=== PATIENT | female | born 1995 | race Caucasian/White ===

== ENCOUNTER 2016-08-30 19:54 | Emergency (ER) | payer BC ==
[2016-08-30] MEDS ORDERED: SODIUM CHLORIDE 0.9% 500 ML IV STA (20:27)
[2016-08-30] MEDS ORDERED: ACTIVATED CHARCOAL 50 GM/240 ML BOTTLE PO STA (20:27)
--- NOTE | 2016-08-30 20:31 | ED ---
General Adult HPI - General Chief complaint: Overdose Stated complaint: Overdose Time Seen by Provider: 08/30/16 20:00 Source: patient, family, RN notes reviewed Mode of arrival: ambulatory Limitations: no limitations - History of Present Illness Initial comments: This is a 21-year-old female presents emergency Department with her mother patient states she was having a very stressful day so she went ahead and took 20 Klonopin someone else's. She doesn't know the exact strength of the Klonopin. Patient states she was just stressed and did not vomit takes is 20. Patient states she has a history of depression. Does not take her medicines for it. Patient states she was not suicidal and is not suicidal. Patient she just didn't want to tell anybody about it so she tried to deal with her stress herself. Patient denies any sexual activity lately. Patient states she didn't do any other drugs she denies any alcohol patient denies any physical complaints today. Patient denies headache patient denies numbness weakness. Patient denies chest pain difficult breathing or shortness breath per patient denies any recent fever chills or cough. Patient denies abdominal pain patient denies nausea vomiting or diarrhea. Patient states she cannot be because she is basically celibate - Related Data Home Medications Medication Instructions Recorded Confirmed No Known Home Medications [No 08/30/16 08/30/16 Known Home Medications] Allergies Allergy/AdvReac Type Severity Reaction Status Date / Time No Known Allergies Allergy Verified 08/30/16 19:59 Review of Systems ROS Statement: Those systems with pertinent positive or pertinent negative responses have been documented in the HPI. ROS Other: All systems not noted in ROS Statement are negative. Past Medical History Past Medical History: No Reported History History of Any Multi-Drug Resistant Organisms: None Reported Past Surgical History: Ear Surgery Past Psychological History: No Psychological Hx Reported Smoking Status: Current every day smoker Past Alcohol Use History: Rare Past Drug Use History: None Reported General Exam - General Exam Comments Initial Comments: GENERAL: Patient is well-developed and well-nourished. Patient is nontoxic and well- hydrated and is in no acute distress. ENT: Neck is soft and supple. No significant lymphadenopathy is noted. Oropharynx is clear. Moist mucous membranes. Neck has full range of motion without eliciting any pain. EYES: The sclera were anicteric and conjunctiva were pink and moist. Extraocular movements were intact and pupils were equal round and reactive to light. Eyelids were unremarkable. PULMONARY: Unlabored respirations. Good breath sounds bilaterally. No audible rales rhonchi or wheezing was noted. CARDIOVASCULAR: Patient is tachycardic. ABDOMEN: Soft and nontender with normal bowel sounds. No palpable organomegaly was noted. There is no palpable pulsatile mass. SKIN: Skin is clear with no lesions or rashes and otherwise unremarkable. NEUROLOGIC: Patient is alert and oriented x3. Cranial nerves II through XII are grossly intact. Motor and sensory are also intact. Normal speech, volume and content. Symmetrical smile. C MUSCULOSKELETAL: Normal extremities with adequate strength and full range of motion. No lower extremity swelling or edema. No calf tenderness. LYMPHATICS: No significant lymphadenopathy is noted PSYCHIATRIC: Patient has a very flat affect and does appear depressed Limitations: no limitations Course Vital Signs 08/30/16 08/30/16 08/30/16 19:57 21:00 23:25 Temperature 98.9 F Pulse Rate 120 H 118 H 102 H Respiratory 20 16 16 Rate Blood Pressure 141/86 158/73 115/61 O2 Sat by Pulse 97 98 98 Oximetry Medical Decision Making - Medical Decision Making EKG shows sinus tachycardia at 116 bpm NM interval is 142 QRS is 98 QT interval 352 QTC is 461 I spoke to the patient on a number of occasions and every time she had no complaints and wanted to go home and she continued to seize he is not suicidal. EPS evaluated the patient spoke with the psychiatrist and the psychiatrist wanted the patient admitted because of her impulsive behavior. The psychiatric nurses filled out a petition and I filled out a clinical certificate. - Lab Data Result diagrams: 08/30/16 20:17 08/30/16 20:17 Lab Results 08/30/16 08/30/16 08/30/16 Range/Units 20:13 20:13 20:17 WBC (4.0-11.0) k/uL RBC (3.80-5.40) m/uL Hgb (11.4-16.0) gm/dL Hct (34.0-46.0) % MCV (80.0-100.0) fL MCH (25.0-35.0) pg MCHC (31.0-37.0) g/dL RDW (11.5-15.5) % Plt Count (150-450) k/uL Neutrophils % % Lymphocytes % % Monocytes % % Eosinophils % % Basophils % % Neutrophils # (1.3-7.7) k/uL Lymphocytes # (1.0-4.8) k/uL Monocytes # (0-1.0) k/uL Eosinophils # (0-0.7) k/uL Basophils # (0-0.2) k/uL Sodium 145 (137-145) mmol/L Potassium 4.4 (3.5-5.1) mmol/L Chloride 103 (98-107) mmol/L Carbon Dioxide 28 (22-30) mmol/L Anion Gap 14 mmol/L BUN 13 (7-17) mg/dL Creatinine 0.80 (0.52-1.04) mg/dL Est GFR (MDRD) Af Amer >60 (>60 ml/min/1.73 sqM) Est GFR (MDRD) Non-Af >60 (>60 ml/min/1.73 sqM) Glucose 79 (74-99) mg/dL Calcium 9.8 (8.4-10.2) mg/dL Total Bilirubin 0.5 (0.2-1.3) mg/dL AST 27 (14-36) U/L ALT 27 (9-52) U/L Alkaline Phosphatase 71 (38-126) U/L Total Protein 7.3 (6.3-8.2) g/dL Albumin 4.7 (3.5-5.0) g/dL Urine HCG, Qual Not Detected (Not Detectd) Salicylates <1.0 mg/dL Urine Opiates Screen Not Detected (NotDetected) Ur Oxycodone Screen Not Detected (NotDetected) Urine Methadone Screen Not Detected (NotDetected) Ur Propoxyphene Screen Not Detected (NotDetected) Acetaminophen <10.0 ug/mL Ur Barbiturates Screen Not Detected (NotDetected) U Tricyclic Antidepress Not Detected (NotDetected) Ur Phencyclidine Scrn Not Detected (NotDetected) Ur Amphetamines Screen Not Detected (NotDetected) U Methamphetamines Scrn Not Detected (NotDetected) U Benzodiazepines Scrn Not Detected (NotDetected) Urine Cocaine Screen Not Detected (NotDetected) U Marijuana (THC) Screen Not Detected (NotDetected) Serum Alcohol <10 mg/dL 03/26/17 Range/Units 20:17 WBC 9.8 (4.0-11.0) k/uL RBC 4.59 (3.80-5.40) m/uL Hgb 14.0 (11.4-16.0) gm/dL Hct 41.7 (34.0-46.0) % MCV 90.9 (80.0-100.0) fL MCH 30.4 (25.0-35.0) pg MCHC 33.5 (31.0-37.0) g/dL RDW 12.3 (11.5-15.5) % Plt Count 245 (150-450) k/uL Neutrophils % 71 % Lymphocytes % 21 % Monocytes % 6 % Eosinophils % 1 % Basophils % 0 % Neutrophils # 7.0 (1.3-7.7) k/uL Lymphocytes # 2.1 (1.0-4.8) k/uL Monocytes # 0.5 (0-1.0) k/uL Eosinophils # 0.0 (0-0.7) k/uL Basophils # 0.0 (0-0.2) k/uL Sodium (137-145) mmol/L Potassium (3.5-5.1) mmol/L Chloride (98-107) mmol/L Carbon Dioxide (22-30) mmol/L Anion Gap mmol/L BUN (7-17) mg/dL Creatinine (0.52-1.04) mg/dL Est GFR (MDRD) Af Amer (>60 ml/min/1.73 sqM) Est GFR (MDRD) Non-Af (>60 ml/min/1.73 sqM) Glucose (74-99) mg/dL Calcium (8.4-10.2) mg/dL Total Bilirubin (0.2-1.3) mg/dL AST (14-36) U/L ALT (9-52) U/L Alkaline Phosphatase (38-126) U/L Total Protein (6.3-8.2) g/dL Albumin (3.5-5.0) g/dL Urine HCG, Qual (Not Detectd) Salicylates mg/dL Urine Opiates Screen (NotDetected) Ur Oxycodone Screen (NotDetected) Urine Methadone Screen (NotDetected) Ur Propoxyphene Screen (NotDetected) Acetaminophen ug/mL Ur Barbiturates Screen (NotDetected) U Tricyclic Antidepress (NotDetected) Ur Phencyclidine Scrn (NotDetected) Ur Amphetamines Screen (NotDetected) U Methamphetamines Scrn (NotDetected) U Benzodiazepines Scrn (NotDetected) Urine Cocaine Screen (NotDetected) U Marijuana (THC) Screen (NotDetected) Serum Alcohol mg/dL Disposition Clinical Impression: Drug overdose, Depression, History of impulsive behavior Disposition: ADMITTED IP TO THIS HOSP Referrals: Guillaume Ramirez DO [Primary Care Provider] - 1-2 days Time of Disposition: 00:26
[2016-08-30 20:52] LABS: Basophils % (A) 0 %; CH 30.5; CHCM 33.7; Eosinophils % (A) 1 %; HCT 41.7 % (34.0-46.0); HDW 2.39; Luc # (Auto) 0.16; Luc % (Auto) 2; Lymphocytes # (A) 2.1 k/uL (1.0-4.8); Lymphocytes % (A) 21 %; MCH 30.4 pg (25.0-35.0); MCHC 33.5 g/dL (31.0-37.0); MCV 90.9 fL (80.0-100.0); Mean Platelet Volume 7.6; Monocytes # (A) 0.5 k/uL (0-1.0); Monocytes % (A) 6 %; Neutrophils % (A) 71 %; RBC 4.59 m/uL (3.80-5.40); RDW 12.3 % (11.5-15.5); WBC 9.8 k/uL (4.0-11.0); WBC (Perox) 9.54
[2016-08-30 21:24] LABS: ALT 27 U/L (9-52); AST 27 U/L (14-36); Acetaminophen <10.0 ug/mL; Alcohol <10 mg/dL; Alkaline Phosphatase 71 U/L (38-126); Anion Gap 14 mmol/L; Blood Urea Nitrogen 13 mg/dL (7-17); Calcium 9.8 mg/dL (8.4-10.2); Carbon Dioxide 28 mmol/L (22-30); Chloride 103 mmol/L (98-107); Glucose 79 mg/dL (74-99); Non-African American GFR(MDRD) >60 (>60 ml/min/1.73 sqM); Potassium 4.4 mmol/L (3.5-5.1); Salicylate <1.0 mg/dL; Sodium 145 mmol/L (137-145); Total Bilirubin 0.5 mg/dL (0.2-1.3); Total Protein 7.3 g/dL (6.3-8.2)
[2016-08-30 23:25] VITALS: RESP 16
[2016-08-31 07:36] VITALS: BP 113/57; PULSE 84; TEMP 97.9
== END 2016-08-31 08:15 | disposition other institution (70) ==
LOC: EC 19:54
DX: T42.4X1A Poisoning by benzodiazepines, accidental (unintentional), initial encounter (principal); F32.9 Major depressive disorder, single episode, unspecified; R45.87 Impulsiveness; R00.0 Tachycardia, unspecified; F17.200 Nicotine dependence, unspecified, uncomplicated
CPT/HCPCS: 36415; 80053; 80306; 80320; 81025; 82075; 83520; 85025; 93005; 96360; 99284

== ENCOUNTER 2019-02-25 12:33 | Emergency (ER) | payer BC ==
[2019-02-25] MEDS ORDERED: ONDANSETRON 4 MG/2 ML VIAL IVP STA (12:44)
[2019-02-25] MEDS ORDERED: SODIUM CHLORIDE 0.9% 2,000 ML IV STA (12:44)
[2019-02-25] MEDS ORDERED: LORazepam 2 MG/ML INJ IV STA (12:45)
--- NOTE | 2019-02-25 12:47 | ED ---
General Adult HPI - General Chief complaint: Nausea/Vomiting/Diarrhea Stated complaint: NVD Time Seen by Provider: 02/25/19 12:38 Source: patient, RN notes reviewed, old records reviewed Mode of arrival: ambulatory Limitations: no limitations - History of Present Illness Initial comments: This Patient is a pleasant 23-year-old female who presents emergency department today with chief complaint of nausea vomiting and diarrhea for the past 2 days. Patient reports symptoms started shortly after eating sushi a local restaurant. Patient states that she blew she's suffering from food poisoning. She denies any abdominal tenderness. She states that she's had significant vomiting and unable to tolerate her normal medications. She states she takes Xanax regularly for anxiety and has not been able take this as well. Patient denies any associated fevers. She does report that of blood noted in her stool. - Related Data Previous Rx's Medication Instructions Recorded Acetaminophen Tab [Tylenol] 650 mg PO Q6HR PRN tab 06/10/17 Levofloxacin [Levaquin] 500 mg PO DAILY #10 tab 06/11/17 Naproxen [Naprosyn] 250 mg PO TID #21 tab 06/11/17 Ondansetron Odt [Zofran Odt] 4 mg PO Q8HR PRN #12 tab 02/25/19 Allergies Allergy/AdvReac Type Severity Reaction Status Date / Time No Known Allergies Allergy Verified 02/25/19 12:37 Review of Systems ROS Statement: Those systems with pertinent positive or pertinent negative responses have been documented in the HPI. ROS Other: All systems not noted in ROS Statement are negative. Past Medical History Past Medical History: No Reported History History of Any Multi-Drug Resistant Organisms: None Reported Past Surgical History: Ear Surgery Additional Past Surgical History / Comment(s): tubes in ears as child Past Anesthesia/Blood Transfusion Reactions: No Reported Reaction Past Psychological History: ADD/ADHD, Anxiety Smoking Status: Former smoker Past Alcohol Use History: None Reported Past Drug Use History: None Reported - Past Family History Mother Family Medical History: No Reported History General Exam - General Exam Comments Initial Comments: This is a 23-year-old female. Alert and oriented 3. No distress. Limitations: no limitations General appearance: alert, in no apparent distress Head exam: Present: atraumatic, normocephalic, normal inspection Eye exam: Present: normal appearance, PERRL, EOMI. Absent: scleral icterus, conjunctival injection, periorbital swelling ENT exam: Present: normal exam, mucous membranes moist Neck exam: Present: normal inspection. Absent: tenderness, meningismus, lymphadenopathy Respiratory exam: Present: normal lung sounds bilaterally. Absent: respiratory distress, wheezes, rales, rhonchi, stridor Cardiovascular Exam: Present: regular rate, normal rhythm, normal heart sounds. Absent: systolic murmur, diastolic murmur, rubs, gallop, clicks GI/Abdominal exam: Present: soft, normal bowel sounds. Absent: distended, tenderness, guarding, rebound, rigid Extremities exam: Present: normal inspection, full ROM, normal capillary refill. Absent: tenderness, pedal edema, joint swelling, calf tenderness Back exam: Present: normal inspection Neurological exam: Present: alert, oriented X3, CN II-XII intact Psychiatric exam: Present: normal affect, normal mood Skin exam: Present: warm Course Vital Signs 02/25/19 12:35 Temperature 98.4 F Pulse Rate 97 Respiratory 20 Rate Blood Pressure 118/71 O2 Sat by Pulse 100 Oximetry Medical Decision Making - Medical Decision Making 23-year-old female presents for nausea vomiting diarrhea for 2 days after eating sushi. Symptoms started 2 hours after eating this food. At this time Patient at this time is abdominal tenderness. No fever. Patient at this time has no other significant symptoms. Patient's labwork was reviewed and unremarkable. This time Patient is agreeable to be discharged home after receiving 2 L of fluids. Discussed the Patient and follow-up with her primary care doctor symptoms continue persist. Discharged Patient instructed her some Zofran. All questions answered to ribs were discussed. - Lab Data Result diagrams: 02/25/19 13:54 02/25/19 13:54 Lab Results 02/25/19 02/25/19 02/25/19 Range/Units 13:54 13:54 13:54 WBC (3.8-10.6) k/uL RBC (3.80-5.40) m/uL Hgb (11.4-16.0) gm/dL Hct (34.0-46.0) % MCV (80.0-100.0) fL MCH (25.0-35.0) pg MCHC (31.0-37.0) g/dL RDW (11.5-15.5) % Plt Count (150-450) k/uL Neutrophils % % Lymphocytes % % Monocytes % % Eosinophils % % Basophils % % Neutrophils # (1.3-7.7) k/uL Lymphocytes # (1.0-4.8) k/uL Monocytes # (0-1.0) k/uL Eosinophils # (0-0.7) k/uL Basophils # (0-0.2) k/uL Sodium 144 (137-145) mmol/L Potassium 4.0 (3.5-5.1) mmol/L Chloride 108 H (98-107) mmol/L Carbon Dioxide 21 L (22-30) mmol/L Anion Gap 15 mmol/L BUN 7 (7-17) mg/dL Creatinine 0.62 (0.52-1.04) mg/dL Est GFR (CKD-EPI)AfAm >90 (>60 ml/min/1.73 sqM) Est GFR (CKD-EPI)NonAf >90 (>60 ml/min/1.73 sqM) Glucose 106 H (74-99) mg/dL Calcium 10.2 (8.4-10.2) mg/dL Total Bilirubin 0.6 (0.2-1.3) mg/dL AST 28 (14-36) U/L ALT 32 (9-52) U/L Alkaline Phosphatase 82 (38-126) U/L Total Protein 8.1 (6.3-8.2) g/dL Albumin 5.1 H (3.5-5.0) g/dL Amylase 49 (30-110) U/L Lipase 38 (23-300) U/L Urine Color Yellow Urine Appearance Clear (Clear) Urine pH 5.5 (5.0-8.0) Ur Specific Mcdonald 1.026 (1.001-1.035) Urine Protein Negative (Negative) Urine Glucose (UA) Negative (Negative) Urine Ketones Negative (Negative) Urine Blood Negative (Negative) Urine Nitrite Negative (Negative) Urine Bilirubin Negative (Negative) Urine Urobilinogen <2.0 (<2.0) mg/dL Ur Leukocyte Esterase Negative (Negative) Urine HCG, Qual Not Detected (Not Detectd) 02/25/19 Range/Units 13:54 WBC 9.1 (3.8-10.6) k/uL RBC 4.78 (3.80-5.40) m/uL Hgb 13.6 (11.4-16.0) gm/dL Hct 42.1 (34.0-46.0) % MCV 88.0 (80.0-100.0) fL MCH 28.5 (25.0-35.0) pg MCHC 32.3 (31.0-37.0) g/dL RDW 12.7 (11.5-15.5) % Plt Count 276 (150-450) k/uL Neutrophils % 77 % Lymphocytes % 18 % Monocytes % 4 % Eosinophils % 1 % Basophils % 0 % Neutrophils # 7.0 (1.3-7.7) k/uL Lymphocytes # 1.6 (1.0-4.8) k/uL Monocytes # 0.3 (0-1.0) k/uL Eosinophils # 0.1 (0-0.7) k/uL Basophils # 0.0 (0-0.2) k/uL Sodium (137-145) mmol/L Potassium (3.5-5.1) mmol/L Chloride (98-107) mmol/L Carbon Dioxide (22-30) mmol/L Anion Gap mmol/L BUN (7-17) mg/dL Creatinine (0.52-1.04) mg/dL Est GFR (CKD-EPI)AfAm (>60 ml/min/1.73 sqM) Est GFR (CKD-EPI)NonAf (>60 ml/min/1.73 sqM) Glucose (74-99) mg/dL Calcium (8.4-10.2) mg/dL Total Bilirubin (0.2-1.3) mg/dL AST (14-36) U/L ALT (9-52) U/L Alkaline Phosphatase (38-126) U/L Total Protein (6.3-8.2) g/dL Albumin (3.5-5.0) g/dL Amylase (30-110) U/L Lipase (23-300) U/L Urine Color Urine Appearance (Clear) Urine pH (5.0-8.0) Ur Specific Mcdonald (1.001-1.035) Urine Protein (Negative) Urine Glucose (UA) (Negative) Urine Ketones (Negative) Urine Blood (Negative) Urine Nitrite (Negative) Urine Bilirubin (Negative) Urine Urobilinogen (<2.0) mg/dL Ur Leukocyte Esterase (Negative) Urine HCG, Qual (Not Detectd) Disposition Clinical Impression: Nausea & vomiting, Diarrhea Disposition: HOME SELF-CARE Condition: Good Instructions (If sedation given, give patient instructions): Acute Nausea and Vomiting (ED) Additional Instructions: Please use medication as discussed. Please follow up with family doctor if symptoms have not improved over the next two days. Please return to the emergency room if your symptoms increase or worsen or for any other concerns. Prescriptions: Ondansetron Odt [Zofran Odt] 4 mg PO Q8HR PRN #12 tab PRN Reason: Nausea Is patient prescribed a controlled substance at d/c from ED?: No Referrals: Guillaume Ramirez DO [Primary Care Provider] - 1-2 days Time of Disposition: 14:28
[2019-02-25 14:04] LABS: Appearance,Urine Clear (Clear); Basophils % (A) 0 %; Bilirubin,Urine Negative (Negative); Blood,Urine Negative (Negative); Color,Urine Yellow; Eosinophils # (A) 0.1 k/uL (0-0.7); Eosinophils % (A) 1 %; Glucose,Urine (UA) Negative (Negative); HCT 42.1 % (34.0-46.0); HGB 13.6 gm/dL (11.4-16.0); Ketones,Urine Negative (Negative); Leukocyte Esterase,Urine Negative (Negative); Lymphocytes # (A) 1.6 k/uL (1.0-4.8); Lymphocytes % (A) 18 %; MCH 28.5 pg (25.0-35.0); MCHC 32.3 g/dL (31.0-37.0); Mean Platelet Volume 7.5; Monocytes # (A) 0.3 k/uL (0-1.0); Monocytes % (A) 4 %; Neutrophils % (A) 77 %; Nitrite,Urine Negative (Negative); PH, Urine 5.5 (5.0-8.0); Platelet Count 276 k/uL (150-450); Protein,Urine Negative (Negative); RBC 4.78 m/uL (3.80-5.40); RDW 12.7 % (11.5-15.5); Specific Gravity,Urine 1.026 (1.001-1.035); Urobilinogen,Urine <2.0 mg/dL (<2.0); WBC 9.1 k/uL (3.8-10.6)
[2019-02-25 14:13] LABS: ALT 32 U/L (9-52); AST 28 U/L (14-36); African American GFR (CKD) >90 (>60 ml/min/1.73 sqM); Albumin 5.1 g/dL (3.5-5.0); Alkaline Phosphatase 82 U/L (38-126); Amylase 49 U/L (30-110); Anion Gap 15 mmol/L; Blood Urea Nitrogen 7 mg/dL (7-17); Calcium 10.2 mg/dL (8.4-10.2); Carbon Dioxide 21 mmol/L (22-30); Chloride 108 mmol/L (98-107); Glucose 106 mg/dL (74-99); Sodium 144 mmol/L (137-145); Total Bilirubin 0.6 mg/dL (0.2-1.3); Total Protein 8.1 g/dL (6.3-8.2)
[2019-02-25 16:03] VITALS: RESP 18; TEMP 98
[2019-02-25 16:04] VITALS: BP 115/87; PULSE 78
== END 2019-02-25 15:30 | disposition home or self-care (01) ==
LOC: EC 12:33
DX: R11.2 Nausea with vomiting, unspecified (principal); R19.7 Diarrhea, unspecified; F41.9 Anxiety disorder, unspecified; Z87.891 Personal history of nicotine dependence; Z79.899 Other long term (current) drug therapy
CPT/HCPCS: 36415; 80053; 82150; 83690; 85025; 81003; 81025; 99284; 96374; 96375; 96361 ×2; J2060; J2405

== ENCOUNTER 2019-06-26 14:02 | Emergency (ER) | payer BC ==
[2019-06-26 14:34] VITALS: TEMP 98.8
[2019-06-26] MEDS: SODIUM CHLORIDE 0.9% 500 ML 500 ML IV ONE ×2 (15:48→16:55)
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
[2019-06-26] MEDS: LORazepam 1 MG TAB PO STA ×2 (17:09→17:26)
[2019-06-26] MEDS: ACETAMINOPHEN TAB 325 MG TAB PO STA ×2 (17:09→17:35)
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
[2019-06-26 17:48] VITALS: BP 151/94; PULSE 104; RESP 18
== END 2019-06-26 17:46 | disposition home or self-care (01) ==
LOC: EC 14:02
DX: S80.212A Abrasion, left knee, initial encounter (principal); S00.511A Abrasion of lip, initial encounter; M54.2 Cervicalgia; Z87.891 Personal history of nicotine dependence; Y04.0XXA Assault by unarmed brawl or fight, initial encounter; Y92.009 Unspecified place in unspecified non-institutional (private) residence as the place of occurrence of the external cause
CPT/HCPCS: 72125; 70450; 70498; 99284; 96360; Q9967

== ENCOUNTER 2019-09-29 20:56 | Inpatient (IN) | payer BC ==
[2019-09-29] MEDS ORDERED: SODIUM CHLORIDE 0.9% 1,000 ML IV STA (21:45)
[2019-09-29 22:10] LABS: Basophils % (A) 0 %; Eosinophils # (A) 0.1 k/uL (0-0.7); Eosinophils % (A) 1 %; HCT 40.2 % (34.0-46.0); HGB 12.7 gm/dL (11.4-16.0); Lymphocytes # (A) 1.8 k/uL (1.0-4.8); Lymphocytes % (A) 24 %; MCH 29.9 pg (25.0-35.0); MCHC 31.7 g/dL (31.0-37.0); MCV 94.3 fL (80.0-100.0); Mean Platelet Volume 7.5; Monocytes # (A) 0.3 k/uL (0-1.0); Monocytes % (A) 4 %; Neutrophils # (A) 5.3 k/uL (1.3-7.7); Neutrophils % (A) 69 %; Platelet Count 235 k/uL (150-450); RBC 4.26 m/uL (3.80-5.40); RDW 12.7 % (11.5-15.5); WBC 7.6 k/uL (3.8-10.6)
--- NOTE | 2019-09-29 22:10 | ED ---
General Adult HPI - General Source: patient, family, RN notes reviewed Mode of arrival: ambulatory Limitations: no limitations <Malik Abraham - Last Filed: 09/30/19 01:14> <Ravi Ramirez - Last Filed: 09/30/19 06:51> - General Chief complaint: Overdose Stated complaint: Overdose Time Seen by Provider: 09/29/19 21:17 - History of Present Illness Initial comments: 24-year-old female presents to the emergency department for a chief complaint of overdose. Patient states that at an unknown time prior to arrival she took 8-15 0.25 mg Xanax. However sister is concerned she may have taken something else as well. Patient denies that she did this because she was suicidal. She states she did it because she is overwhelmed with her life. States that she recently had a friend , has to testify in court for a matter involving a significant other, and also got kicked out of her house. She does admit to drinking one glass of wine. She states that she does see a counselor for these types of things.Patient has no other complaints at this time including shortness of breath, chest pain, abdominal pain, nausea or vomiting, headache, or visual changes. (Malik Abraham) - Related Data Previous Rx's Medication Instructions Recorded Acetaminophen Tab [Tylenol] 650 mg PO Q6HR PRN tab 06/10/17 Levofloxacin [Levaquin] 500 mg PO DAILY #10 tab 06/11/17 Naproxen [Naprosyn] 250 mg PO TID #21 tab 06/11/17 Ondansetron Odt [Zofran Odt] 4 mg PO Q8HR PRN #12 tab 02/25/19 Allergies Allergy/AdvReac Type Severity Reaction Status Date / Time No Known Allergies Allergy Verified 09/29/19 21:05 Review of Systems ROS Other: All systems not noted in ROS Statement are negative. <Malik Abraham - Last Filed: 09/30/19 01:14> ROS Other: All systems not noted in ROS Statement are negative. <Ravi Ramirez - Last Filed: 09/30/19 06:51> ROS Statement: Those systems with pertinent positive or pertinent negative responses have been documented in the HPI. Past Medical History Past Medical History: No Reported History History of Any Multi-Drug Resistant Organisms: None Reported Past Surgical History: Ear Surgery Additional Past Surgical History / Comment(s): tubes in ears as child, rhinoplasty Past Anesthesia/Blood Transfusion Reactions: No Reported Reaction Past Psychological History: ADD/ADHD, Anxiety Smoking Status: Former smoker Past Alcohol Use History: Occasional Past Drug Use History: None Reported - Past Family History Mother Family Medical History: No Reported History <Malik Abraham P - Last Filed: 09/30/19 01:14> General Exam Limitations: no limitations General appearance: alert, in no apparent distress Head exam: Present: atraumatic, normocephalic, normal inspection Eye exam: Present: normal appearance, PERRL, EOMI. Absent: scleral icterus, conjunctival injection, periorbital swelling ENT exam: Present: normal exam, mucous membranes moist Neck exam: Present: normal inspection, full ROM. Absent: tenderness, meningismus, lymphadenopathy Respiratory exam: Present: normal lung sounds bilaterally. Absent: respiratory distress, wheezes, rales, rhonchi, stridor Cardiovascular Exam: Present: tachycardia, normal heart sounds. Absent: systolic murmur, diastolic murmur, rubs, gallop, clicks GI/Abdominal exam: Present: soft, normal bowel sounds. Absent: distended, tenderness, guarding, rebound, rigid Neurological exam: Present: alert, oriented X3 Psychiatric exam: Present: normal affect, normal mood <Malik Abraham P - Last Filed: 09/30/19 01:14> Course <Malik Abraham P - Last Filed: 09/30/19 01:14> Vital Signs 09/29/19 09/29/19 09/29/19 21:02 22:10 23:00 Temperature 98.2 F Pulse Rate 152 H 131 H 105 H Respiratory 14 12 12 Rate Blood Pressure 127/71 125/74 110/64 O2 Sat by Pulse 94 L 95 97 Oximetry 09/30/19 09/30/19 09/30/19 00:00 01:00 01:45 Temperature Pulse Rate 99 114 H Respiratory 12 12 8 L Rate Blood Pressure 120/67 116/67 O2 Sat by Pulse 95 Oximetry 09/30/19 09/30/19 09/30/19 02:00 02:33 02:37 Temperature Pulse Rate 117 H 111 H Respiratory 14 14 Rate Blood Pressure 117/75 O2 Sat by Pulse 100 100 Oximetry 09/30/19 03:10 Temperature Pulse Rate 105 H Respiratory 12 Rate Blood Pressure 127/62 O2 Sat by Pulse 100 Oximetry - Reevaluation(s) Reevaluation #1: 09/29/19 23:36 I discussed case with poison control. At this time it is recommended to start patient on NAC. (Malik Abrhaam) EKG Findings - EKG Comments: EKG Findings:: Sinus tachycardia, ventricular rate 140, ME interval 126, QTc 442, no ST elevation or depression <Malik Abraham - Last Filed: 09/30/19 01:14> Medical Decision Making - Lab Data Result diagrams: 09/29/19 21:54 09/29/19 21:54 <Malik Abraham - Last Filed: 09/30/19 01:14> - Lab Data Result diagrams: 09/29/19 21:54 09/29/19 21:54 <Ravi Ramirez - Last Filed: 09/30/19 06:51> - Medical Decision Making Patient initially presented tachycardic however this did improve throughout her stay. She is drowsy however easily arousable. Patient is very consistent with her story. She states that she took 8 Xanax because she was bored however then stated she took 15 and then claims she only took 2. She denies taking any other medications. However acetaminophen level 67.9. CBC CMP is unremarkable. Poison control did recommend checking a VBG and chest x-ray. Chest x-ray shows bibasilar air space disease with low lung volumes. Findings again the basis of atelectasis, aspirated material in the setting of overdose or less likely pneumonia. Patient was started on Unasyn for possible aspiration pneumonia. Coronavirus negative. CO2 mildly elevated at 56. At this time patient will be admitted for further management. (Malik Abraham) I saw this patient in conjunction with the physician graduate assistant. I performed independent history and physical exam. Agree with case management. Please note that when I saw the patient, history was limited as the patient was very somnolent (Ravi Ramirez) - Lab Data Lab Results 09/29/19 09/29/19 09/29/19 Range/Units 21:54 21:54 21:54 WBC 7.6 (3.8-10.6) k/uL RBC 4.26 (3.80-5.40) m/uL Hgb 12.7 (11.4-16.0) gm/dL Hct 40.2 (34.0-46.0) % MCV 94.3 (80.0-100.0) fL MCH 29.9 (25.0-35.0) pg MCHC 31.7 (31.0-37.0) g/dL RDW 12.7 (11.5-15.5) % Plt Count 235 (150-450) k/uL Neutrophils % 69 % Lymphocytes % 24 % Monocytes % 4 % Eosinophils % 1 % Basophils % 0 % Neutrophils # 5.3 (1.3-7.7) k/uL Lymphocytes # 1.8 (1.0-4.8) k/uL Monocytes # 0.3 (0-1.0) k/uL Eosinophils # 0.1 (0-0.7) k/uL Basophils # 0.0 (0-0.2) k/uL VBG pH (7.31-7.41) VBG pCO2 (37-51) mmHg VBG HCO3 (24-28) mmol/L Sodium 138 (137-145) mmol/L Potassium 4.3 (3.5-5.1) mmol/L Chloride 103 (98-107) mmol/L Carbon Dioxide 27 (22-30) mmol/L Anion Gap 8 mmol/L BUN 14 (7-17) mg/dL Creatinine 0.75 (0.52-1.04) mg/dL Est GFR (CKD-EPI)AfAm >90 (>60 ml/min/1.73 sqM) Est GFR (CKD-EPI)NonAf >90 (>60 ml/min/1.73 sqM) Glucose 118 H (74-99) mg/dL Calcium 9.4 (8.4-10.2) mg/dL Total Bilirubin 0.4 (0.2-1.3) mg/dL AST 29 (14-36) U/L ALT 16 (4-34) U/L Alkaline Phosphatase 79 (38-126) U/L Total Protein 6.9 (6.3-8.2) g/dL Albumin 4.4 (3.5-5.0) g/dL HCG, Qual Not Detected Urine Color Urine Appearance (Clear) Urine pH (5.0-8.0) Ur Specific [place] (1.001-1.035) Urine Protein (Negative) Urine Glucose (UA) (Negative) Urine Ketones (Negative) Urine Blood (Negative) Urine Nitrite (Negative) Urine Bilirubin (Negative) Urine Urobilinogen (<2.0) mg/dL Ur Leukocyte Esterase (Negative) Urine RBC (0-5) /hpf Urine WBC (0-5) /hpf Ur Squamous Epith Cells (0-4) /hpf Urine Bacteria (None) /hpf Urine Mucus (None) /hpf Salicylates 1.1 mg/dL Urine Opiates Screen (NotDetected) Ur Oxycodone Screen (NotDetected) Urine Methadone Screen (NotDetected) Ur Propoxyphene Screen (NotDetected) Acetaminophen 67.9 H* ug/mL Ur Barbiturates Screen (NotDetected) U Tricyclic Antidepress (NotDetected) Ur Phencyclidine Scrn (NotDetected) Ur Amphetamines Screen (NotDetected) U Methamphetamines Scrn (NotDetected) U Benzodiazepines Scrn (NotDetected) Urine Cocaine Screen (NotDetected) U Marijuana (THC) Screen (NotDetected) Serum Alcohol <10 mg/dL Coronavirus (PCR) (Not Detectd) 09/29/19 09/30/19 09/30/19 Range/Units 23:42 00:21 00:54 WBC (3.8-10.6) k/uL RBC (3.80-5.40) m/uL Hgb (11.4-16.0) gm/dL Hct (34.0-46.0) % MCV (80.0-100.0) fL MCH (25.0-35.0) pg MCHC (31.0-37.0) g/dL RDW (11.5-15.5) % Plt Count (150-450) k/uL Neutrophils % % Lymphocytes % % Monocytes % % Eosinophils % % Basophils % % Neutrophils # (1.3-7.7) k/uL Lymphocytes # (1.0-4.8) k/uL Monocytes # (0-1.0) k/uL Eosinophils # (0-0.7) k/uL Basophils # (0-0.2) k/uL VBG pH 7.30 L (7.31-7.41) VBG pCO2 56 H (37-51) mmHg VBG HCO3 27 (24-28) mmol/L Sodium (137-145) mmol/L Potassium (3.5-5.1) mmol/L Chloride (98-107) mmol/L Carbon Dioxide (22-30) mmol/L Anion Gap mmol/L BUN (7-17) mg/dL Creatinine (0.52-1.04) mg/dL Est GFR (CKD-EPI)AfAm (>60 ml/min/1.73 sqM) Est GFR (CKD-EPI)NonAf (>60 ml/min/1.73 sqM) Glucose (74-99) mg/dL Calcium (8.4-10.2) mg/dL Total Bilirubin (0.2-1.3) mg/dL AST (14-36) U/L ALT (4-34) U/L Alkaline Phosphatase (38-126) U/L Total Protein (6.3-8.2) g/dL Albumin (3.5-5.0) g/dL HCG, Qual Urine Color Yellow Urine Appearance Cloudy H (Clear) Urine pH 5.5 (5.0-8.0) Ur Specific [place] 1.033 (1.001-1.035) Urine Protein Trace H (Negative) Urine Glucose (UA) Negative (Negative) Urine Ketones Negative (Negative) Urine Blood Negative (Negative) Urine Nitrite Negative (Negative) Urine Bilirubin Negative (Negative) Urine Urobilinogen 2.0 (<2.0) mg/dL Ur Leukocyte Esterase Moderate H (Negative) Urine RBC 1 (0-5) /hpf Urine WBC 26 H (0-5) /hpf Ur Squamous Epith Cells 1 (0-4) /hpf Urine Bacteria Occasional H (None) /hpf Urine Mucus Few H (None) /hpf Salicylates mg/dL Urine Opiates Screen Detected H (NotDetected) Ur Oxycodone Screen Detected H (NotDetected) Urine Methadone Screen Not Detected (NotDetected) Ur Propoxyphene Screen Not Detected (NotDetected) Acetaminophen ug/mL Ur Barbiturates Screen Not Detected (NotDetected) U Tricyclic Antidepress Detected H (NotDetected) Ur Phencyclidine Scrn Not Detected (NotDetected) Ur Amphetamines Screen Detected H (NotDetected) U Methamphetamines Scrn Not Detected (NotDetected) U Benzodiazepines Scrn Detected H (NotDetected) Urine Cocaine Screen Not Detected (NotDetected) U Marijuana (THC) Screen Not Detected (NotDetected) Serum Alcohol mg/dL Coronavirus (PCR) Not Detected (Not Detectd) Disposition Is patient prescribed a controlled substance at d/c from ED?: No Time of Disposition: 01:15 <Malik Abraham - Last Filed: 09/30/19 01:14> <Ravi Ramirez - Last Filed: 09/30/19 06:51> Clinical Impression: Acetaminophen overdose, Aspiration pneumonia Disposition: ADMITTED IP TO THIS HOSP Condition: Fair
[2019-09-29 22:18] LABS: ALT 16 U/L (4-34); AST 29 U/L (14-36); African American GFR (CKD) >90 (>60 ml/min/1.73 sqM); Albumin 4.4 g/dL (3.5-5.0); Alcohol <10 mg/dL; Alkaline Phosphatase 79 U/L (38-126); Anion Gap 8 mmol/L; Blood Urea Nitrogen 14 mg/dL (7-17); Calcium 9.4 mg/dL (8.4-10.2); Carbon Dioxide 27 mmol/L (22-30); Chloride 103 mmol/L (98-107); Glucose 118 mg/dL (74-99); Non-African American GFR(CKD) >90 (>60 ml/min/1.73 sqM); Potassium 4.3 mmol/L (3.5-5.1); Salicylate 1.1 mg/dL; Sodium 138 mmol/L (137-145); Total Bilirubin 0.4 mg/dL (0.2-1.3); Total Protein 6.9 g/dL (6.3-8.2)
[2019-09-29 22:26] LABS: Acetaminophen 67.9 ug/mL
[2019-09-29] MEDS ORDERED: DEXTROSE 5% IV ONE ×2 (23:24)
[2019-09-29] MEDS ORDERED: WATER IV ONE ×2 (23:24)
[2019-09-29] MEDS ORDERED: ACETYLCYSTEINE IV ONE ×2 (23:24)
--- NOTE | 2019-09-29 23:43 | XR ---
EXAMINATION TYPE: XR chest 1V portable DATE OF EXAM: 09/29/2019 COMPARISON: NONE HISTORY: Cough, overdose TECHNIQUE: Single frontal view of the chest is obtained. FINDINGS: Retrocardiac and right basilar consolidations are seen. There are low lung volumes. Cardio mediastinal silhouette is upper limits of normal size. No sizable pneumothorax or pleural effusion. N o acute osseous process. IMPRESSION: Bibasilar airspace disease with low lung volumes. Findings may be on the basis of atelec tasis, aspirated material in the setting of overdose, or less likely pneumonia.
[2019-09-29 23:47] LABS: VBG PH 7.3 (7.31-7.41)
[2019-09-30] MEDS ORDERED: ACETYLCYSTEINE IV ONE ×4 (00:24→04:24)
[2019-09-30] MEDS ORDERED: DEXTROSE 5% IV ONE ×4 (00:24→04:24)
[2019-09-30] MEDS ORDERED: WATER IV ONE ×4 (00:24→04:24)
[2019-09-30] MEDS ORDERED: NALOXONE 0.4 MG/ML 1 ML VIAL IV PRN (01:06)
[2019-09-30] MEDS ORDERED: AMPICILLIN-SULBACTAM 3 GM in SODIUM CHLORIDE 0.9% 100 ML IVPB STA (01:09)
[2019-09-30 01:10] LABS: Appearance,Urine Cloudy (Clear); Bacteria,Urine Occasional /hpf; Bilirubin,Urine Negative (Negative); Blood,Urine Negative (Negative); Color,Urine Yellow; Glucose,Urine (UA) Negative (Negative); Ketones,Urine Negative (Negative); Leukocyte Esterase,Urine Moderate (Negative); Mucus,Urine Few /hpf; Nitrite,Urine Negative (Negative); PH, Urine 5.5 (5.0-8.0); Protein,Urine Trace (Negative); RBC,Urine 1 /hpf (0-5); Specific Gravity,Urine 1.033 (1.001-1.035); Squamous Epithelial Cell,Urine 1 /hpf (0-4); WBC,Urine 26 /hpf (0-5)
[2019-09-30 01:12] LABS: Amphetamine Screen,Urine Detected (NotDetected); Barbiturate Screen,Urine Not Detected (NotDetected); Benzodiazepines Screen,Urine Detected (NotDetected); Cocaine Screen,Urine Not Detected (NotDetected); Methadone Screen, Urine Not Detected (NotDetected); Opiate Screen,Urine Detected (NotDetected); Oxycodone Screen, Urine Detected (NotDetected); Phencyclidine Screen,Urine Not Detected (NotDetected); Tricyclic Antidepressant,Urine Detected (NotDetected); Urn Cannabinoid Scrn Not Detected (NotDetected)
[2019-09-30] MEDS: SODIUM CHLORIDE 0.9% 1,000 ML IV SCH ×3 (01:20→17:44)
[2019-09-30] MEDS ORDERED: NALOXONE 0.4 MG/ML 1 ML VIAL IV STA (01:41)
[2019-09-30] MEDS: AMPICILLIN-SULBACTAM 3 GM in SODIUM CHLORIDE 0.9% 100 ML IVPB SCH ×3 (05:43→19:25)
[2019-09-30 12:52] LABS: Basophils % (A) 0 %; Eosinophils # (A) 0.1 k/uL (0-0.7); Eosinophils % (A) 1 %; HCT 35.7 % (34.0-46.0); HGB 11.2 gm/dL (11.4-16.0); Hypochromasia Slight; Lymphocytes # (A) 1.6 k/uL (1.0-4.8); Lymphocytes % (A) 19 %; MCH 30.5 pg (25.0-35.0); MCHC 31.5 g/dL (31.0-37.0); Monocytes # (A) 0.4 k/uL (0-1.0); Monocytes % (A) 5 %; Neutrophils # (A) 6.5 k/uL (1.3-7.7); Neutrophils % (A) 75 %; Platelet Count 193 k/uL (150-450); RBC 3.68 m/uL (3.80-5.40); RDW 12.7 % (11.5-15.5); WBC 8.7 k/uL (3.8-10.6)
[2019-09-30 13:03] LABS: ALT 11 U/L (4-34); AST 23 U/L (14-36); Acetaminophen 15.7 ug/mL; African American GFR (CKD) >90 (>60 ml/min/1.73 sqM); Albumin 3.4 g/dL (3.5-5.0); Alkaline Phosphatase 58 U/L (38-126); Anion Gap 6 mmol/L; Blood Urea Nitrogen 9 mg/dL (7-17); Calcium 8.6 mg/dL (8.4-10.2); Carbon Dioxide 25 mmol/L (22-30); Chloride 108 mmol/L (98-107); Glucose 82 mg/dL (74-99); HCG,Qualitative Serum Not Detected; Magnesium 1.8 mg/dL (1.6-2.3); Non-African American GFR(CKD) >90 (>60 ml/min/1.73 sqM); Potassium 4.2 mmol/L (3.5-5.1); Sodium 139 mmol/L (137-145); Total Bilirubin 0.5 mg/dL (0.2-1.3); Total Protein 5.5 g/dL (6.3-8.2)
[2019-09-30 13:08] LABS: Partial Thromboplastin Time 21.9 sec (22.0-30.0); Prothrombin Time 10.8 sec (9.0-12.0)
--- NOTE | 2019-09-30 14:13 | P.CN ---
Psychiatric Consult - . Consult:: 09/30/19 14:05 Identifying data: This patient is a 24-year-old single female who was admitted to the hospital after an intentional overdose with several Xanax tablets. We are asked to consult regarding acute safety risk. History of present illness: The patient is found in her room she seated upright in bed. Prior to me speaking with the patient her current nurse approached me and informed me that the patient had just recently become more alert and capable of participating in a conversation. Her current nurse also had spoken with the patient's father who reportedly states he is very concerned about his daughter safety he indicated that she has had 3-4 other suicide attempts in the past and that he was willing to petition her to the mental health unit if necessary. The patient attempts to underreport the overdose. She states that she took 8 Xanax and nothing else. Her acetaminophen level was elevated and her drug screen was also positive for oxycodone amphetamines benzodiazepines. The patient does appear to have some mild confusion related to her overdose. She is perseverative. 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 The interview was concluded early due to her current limitations, and the fact that she was getting agitated during the conversation. Past psychiatric history: The patient indicates that she was admitted to [facility] approximate 2 years ago for unspecified reasons, her father had reported to nursing that she has had 3-4 suicide attempts in the past. She indicates that she was prescribed Zoloft but she thought it might cause weight gain and she discontinued the medication. It is unclear how long she complied with that medication. Past medical history: Recent overdose with elevated acetaminophen level, ALLERGIES NO KNOWN DRUG ALLERGIES Chemical dependency history unknown however she states that a physician prescribes her Tylenol 3, oxycodone, Adderall, Xanax Mental status exam: The patient is a female appearing her stated age she has a disheveled appearance she is dressed in hospital gowns. She is tired appearing but not lethargic. She appears to be experiencing continued effects of the medications that she overdosed with in terms of thought process. She may have some anterior grade amnesia related to the overdose. She is acutely tearful and during the conversation becomes louder and more agitated. She continues to try to bargain with me to release her from the hospital today. She states she has no suicidal thoughts. She reports no homicidal thoughts. She is endorsing no psychosis. At this time she is not seen to be a valid historian. The session was concluded so that she did not become more agitated. Impressions 1. Depression unspecified rule out major depressive disorder, anxiety unspecified, rule out benzodiazepine, stimulant, opioid use disorders 2. Polysubstance overdose Plan: At this time we would recommend inpatient psychiatric hospitalization once the patient is medically cleared. Continue one-to-one supervision for safety concerns. Nursing indicates that the patient's father is willing to complete a petition. The patient should not be allowed to sign out of the hospital AGAINST MEDICAL ADVICE. If she is threatening to leave the petition should be completed so that security can ensure she remains hospitalized. We will continue the follow patient.
--- NOTE | 2019-09-30 23:36 | P.HPIM ---
History of Present Illness H&P Date: 09/30/19 Chief Complaint: Drug overdose Patient is a 24-year-old female with a known history of anxiety/depression, ADD/ADHD, previous history smoking and history of prior suicide attempt was brought to the hospital with the chief complaint of drug overdose. Apparently patient took 8-15 tablets of 0.25 mg Rx Xanax and also about 10 tablets of Tylenol. Patient says that she is more with her life and also upset that her dad is not allowing her to go outside. Patient states that she recently had a friend and has 2 testify in court for a matter involving a significant other. Patient was also recently kicked out of her mother's house as she denied to stop using drugs. Patient was tachycardic and was drowsy upon admission but arousable. Denied taking any other medications. Denied any complaints of chest pain or shortness of breath. No nausea vomiting or diarrhea no abdominal pain. No fever no chills. No cough or sputum production. Chest x-ray showed bibasilar is just disease with low lung volumes. Findings may be on the basis of atelectasis, aspiration in the setting of overdose. UDS is positive for opiates, oxycodone, methamphetamine, tricyclic antidepres sants and benzodiazepines. Tylenol level 67.9 on admission area did coming down to 15.6 now. Liver enzymes are not elevated. Patient was started on antibiotics and cough Unasyn for possible aspiration pneumonia. Review of Systems Constitutional: Patient denies any fever or chills . No generalized weakness or weight loss. Abdomen: Patient denied nausea vomiting and diarrhea and abdominal pain. Cardiovascular: Patient denies any chest pain or short of breath no palpitations. Respiratory: patient denied any cough is from production. No shortness of breath Neurologic: Patient denied any numbness or tingling headache. Musculoskeletal: Patient denies any complaints of joint swelling or deformity. Skin: Negative Psychiatric: Depressed Endocrine: No heat or cold intolerance. No recent weight gain. Genitourinary: No dysuria or hematuria. All other 14 point ROS negative except the above Past Medical History Past Medical History: No Reported History History of Any Multi-Drug Resistant Organisms: None Reported Past Surgical History: Ear Surgery Additional Past Surgical History / Comment(s): tubes in ears as child, r hinoplasty Past Anesthesia/Blood Transfusion Reactions: No Reported Reaction Past Psychological History: ADD/ADHD, Anxiety Smoking Status: Former smoker Past Alcohol Use History: Occasional Past Drug Use History: None Reported - Past Family History Mother Family Medical History: No Reported History Father Family Medical History: Hypertension Medications and Allergies Home Medications Medication Instructions Recorded Confirmed Type RX: Acetaminophen Tab [Tylenol] 650 mg PO Q6HR PRN tab 06/10/17 09/30/19 Rx ALPRAZolam [Xanax] 0.25 mg PO BID PRN 09/30/19 09/30/19 History Cyclobenzaprine [Flexeril] 10 mg PO TID PRN 09/30/19 09/30/19 History Dextroamphetamine/Amphetamine 20 mg PO BID 09/30/19 09/30/19 History [Adderall] RX: Melatonin 10 mg PO HS PRN 09/30/19 09/30/19 History oxyCODONE HCL/ACETAMINOPHEN 1 tab PO BID PRN 09/30/19 09/30/19 History [Percocet 10-325 mg] Allergies Allergy/AdvReac Type Severity Reaction Status Date / Time No Known Allergies Allergy Verified 09/30/19 13:37 Physical Exam Vitals: Vital Signs Temp Pulse Pulse Resp BP BP Pulse Ox 09/30/19 07:46 97.5 F L 118 H 10 L 132/60 100 09/30/19 07:25 10 L 09/30/19 05:56 97.7 F 109 H 12 122/57 100 09/30/19 03:27 97.3 F L 107 H 12 125/64 99 09/30/19 03:16 12 09/30/19 03:10 105 H 12 127/62 100 09/30/19 02:37 14 09/30/19 02:33 111 H 117/75 100 09/30/19 02:00 117 H 14 100 09/30/19 01:45 8 L 09/30/19 01:00 114 H 12 116/67 09/30/19 00:00 99 12 120/67 95 09/29/19 23:00 105 H 12 110/64 97 09/29/19 22:10 131 H 12 125/74 95 09/29/19 21:02 98.2 F 152 H 14 127/71 94 L Intake and Output 04/24/20 04/25/20 04/25/20 22:59 06:59 14:59 Other: Weight 81.647 kg 99.5 kg PHYSICAL EXAMINATION: Patient is lying in the bed comfortably, no acute distress, awake alert and or iented.. HEENT: Normocephalic. Neck is supple. Pupils reactive. Nostrils clear. Oral cavity is moist. Ears reveal no drainage. Neck reveals no JVD, carotid bruits, or thyromegaly. CHEST EXAMINATION: Trachea is central. Symmetrical expansion. Bibasilar diminished air entry. Lung vo clear to auscultation and percussion. CARDIAC: Normal S1, S2 with no gallops. No murmurs ABDOMEN: Soft. Bowel sounds normal. No organomegaly. No abdominal bruits. Extremities: reveal no edema. No clubbing or cyanosis Neurologically awake, alert, oriented x3 with well-coordinated movements. No focal deficits noted Skin: No rash or skin lesions. Psychiatric: Coperative. Denied any current suicidal ideation. Musculoskeletal: No joint swelling or deformity. Normal range of motion. Results CBC & Chem 7: 09/30/19 11:24 09/30/19 11:24 Labs: Abnormal Lab Results - Last 24 Hours (Table) 09/29/19 09/29/19 09/30/19 Range/Units 21:54 23:42 00:54 VBG pH 7.30 L (7.31-7.41) VBG pCO2 56 H (37-51) mmHg Glucose 118 H (74-99) mg/dL Urine Appearance Cloudy H (Clear) Urine Protein Trace H (Negative) Ur Leukocyte Esterase Moderate H (Negative) Urine WBC 26 H (0-5) /hpf Urine Bacteria Occasional H (None) /hpf Urine Mucus Few H (None) /hpf Urine Opiates Screen Detected H (NotDetected) Ur Oxycodone Screen Detected H (NotDetected) Acetaminophen 67.9 H* ug/mL U Tricyclic Antidepress Detected H (NotDetected) Ur Amphetamines Screen Detected H (NotDetected) U Benzodiazepines Scrn Detected H (NotDetected) Thrombosis Risk Factor Assmnt - DVT/VTE Prophylaxis DVT/VTE Prophylaxis: Pharmacologic Prophylaxis ordered Assessment and Plan Assessment: Acute drug overdose with acetaminophen and opiates Suicide attempt Possible aspiration pneumonia Major depression History of anxiety/depression ADD/ADHD Previous suicide attempt Polysubstance use Obesity with BMI 30.4 History of prior suicidal attempt. Plan: Patient be continued on IV hydration and monitor LFTs and acetaminophen level. Patient will be continued N-Acetylcystine . Patient was seen by psychiatric and recommends inpatient psychiatric unit transfer once medically stable. Continue with bedside sitter. Follow-up labs tomorrow. Follow-up culture reports and further recommendations based on the clinical course. Time with Patient: Greater than 30
[2019-10-01] MEDS: AMPICILLIN-SULBACTAM 3 GM in SODIUM CHLORIDE 0.9% 100 ML IVPB SCH ×4 (00:02→20:00)
[2019-10-01] MEDS: HEPARIN SODIUM,PORCINE 5,000 UNIT/ML 1 ML VIAL SQ SCH ×4 (00:16→23:44)
[2019-10-01] MEDS: SODIUM CHLORIDE 0.9% 1,000 ML IV SCH ×3 (07:02→15:15)
[2019-10-01 07:07] LABS: Basophils % (A) 0 %; Eosinophils # (A) 0.1 k/uL (0-0.7); Eosinophils % (A) 1 %; HGB 10.9 gm/dL (11.4-16.0); Lymphocytes # (A) 2.3 k/uL (1.0-4.8); Lymphocytes % (A) 27 %; MCH 30.3 pg (25.0-35.0); MCV 94.6 fL (80.0-100.0); Monocytes # (A) 0.4 k/uL (0-1.0); Monocytes % (A) 5 %; Neutrophils # (A) 5.6 k/uL (1.3-7.7); Neutrophils % (A) 66 %; Platelet Count 194 k/uL (150-450); RDW 12.6 % (11.5-15.5); WBC 8.5 k/uL (3.8-10.6)
[2019-10-01 09:06] LABS: ALT 12 U/L (4-34); AST 24 U/L (14-36); Acetaminophen <10.0 ug/mL; African American GFR (CKD) >90 (>60 ml/min/1.73 sqM); Albumin 3.6 g/dL (3.5-5.0); Alkaline Phosphatase 57 U/L (38-126); Anion Gap 5 mmol/L; Blood Urea Nitrogen 5 mg/dL (7-17); Calcium 9.1 mg/dL (8.4-10.2); Carbon Dioxide 28 mmol/L (22-30); Chloride 105 mmol/L (98-107); Glucose 93 mg/dL (74-99); Non-African American GFR(CKD) >90 (>60 ml/min/1.73 sqM); Sodium 138 mmol/L (137-145); Total Bilirubin 0.5 mg/dL (0.2-1.3); Total Protein 5.8 g/dL (6.3-8.2)
[2019-10-02] MEDS: AMPICILLIN-SULBACTAM 3 GM in SODIUM CHLORIDE 0.9% 100 ML IVPB SCH ×3 (01:37→13:57)
--- NOTE | 2019-10-02 01:48 | P.PN ---
Subjective Progress Note Date: 10/01/19 Principal diagnosis: Acute drug overdose with Tylenol and other medications Aspiration pneumonia Patient is a 24-year-old female with a known history of anxiety/depression, ADD/ADHD, previous history smoking and history of prior suicide attempt was brought to the hospital with the chief complaint of drug overdose. Apparently patient took 8-15 tablets of 0.25 mg Rx Xanax and also about 10 tablets of Tylenol. Patient says that she is more with her life and also upset that her dad is not allowing her to go outside. Patient states that she recently had a friend and has 2 testify in court for a matter involving a significant other. Patient was also recently kicked out of her mother's house as she denied to stop using drugs. Patient was tachycardic and was drowsy upon admission but arousable. Denied taking any other medications. Denied any complaints of chest pain or shortness of breath. No nausea vomiting or diarrhea no abdominal pain. No fever no chills. No cough or sputum production. Chest x-ray showed bibasilar is just disease with low lung volumes. Findings may be on the basis of atelectasis, aspiration in the setting of overdose. UDS is positive for opiates, oxycodone, methamphetamine, tricyclic antidepressants and benzodiazepines. Tylenol level 67.9 on admission area did coming down to 15.6 now. Liver enzymes are not elevated. Patient was started on antibiotics and cough Unasyn for possible aspiration pneumonia. 10/01/2019 Patient is more awake and oriented today. Able to communicate slowly. Currently being continued on sitter at bedside. Otherwise denied any chest pain or shortness of breath. No nausea vomiting or abdominal pain or diarrhea. Liver enzymes are within normal limits. Tylenol level is less than 10 today. Patient is being continued on Unasyn for aspiration pneumonia with infiltrates in the chest x-ray on admission. Psychiatric recommends inpatient psychiatric unit transfer. Patient is otherwise medically clear to be discharged.. Current medications reviewed. Objective - Vital Signs Vital signs: Vital Signs Temp 98 F 10/01/19 20:30 Pulse 106 H 10/01/19 20:30 Resp 18 10/01/19 20:30 BP 129/83 10/01/19 20:30 Pulse Ox 100 10/01/19 20:30 Intake & Output 10/01/19 10/01/19 10/02/19 06:59 18:59 06:59 Intake Total 240 820 Balance 240 820 Weight 90.4 kg Intake: Intake, IV Titration 100 Amount Ampicillin-Sulbactam 3 gm 100 In Sodium Chloride 0.9% 100 ml @ 200 mls/hr IVPB Q6H [facility] Rx#:[id number] Oral 240 720 Other: Voiding Method Toilet # Voids 1 1 - Exam PHYSICAL EXAMINATION: Patient is lying in the bed comfortably, no acute distress, awake alert and oriented.. HEENT: Normocephalic. Neck is supple. Pupils reactive. Nostrils clear. Oral cavity is moist. Ears reveal no drainage. Neck reveals no JVD, carotid bruits, or thyromegaly. CHEST EXAMINATION: Trachea is central. Symmetrical expansion. Lung vo clear to auscultation and percussion. CARDIAC: Normal S1, S2 with no gallops. No murmurs ABDOMEN: Soft. Bowel sounds normal. No organomegaly. No abdominal bruits. Extremities: reveal no edema. No clubbing or cyanosis Neurologically awake, alert, oriented x3 with well-coordinated movements. No focal deficits noted Skin: No rash or skin lesions. Psychiatric: Coperative. Denied any suicidal ideation Musculoskeletal: No joint swelling or deformity. Normal range of motion. - Labs CBC & Chem 7: 10/01/19 05:48 10/01/19 08:12 Labs: Abnormal Lab Results - Last 24 Hours (Table) 10/01/19 10/01/19 Range/Units 05:48 08:12 RBC 3.60 L (3.80-5.40) m/uL Hgb 10.9 L (11.4-16.0) gm/dL BUN 5 L (7-17) mg/dL Total Protein 5.8 L (6.3-8.2) g/dL Microbiology - Last 24 Hours (Table) 09/30/19 01:46 Blood Culture - Preliminary Blood No Growth after 24 hours Assessment and Plan Assessment: Acute drug overdose with acetaminophen and opiates Suicide attempt Possible aspiration pneumonia Major depression History of anxiety/depression ADD/ADHD Previous suicide attempt Polysubstance use Obesity with BMI 30.4 History of prior suicidal attempt. Plan: Patient be continued on IV hydration and monitor LFTs and acetaminophen level. Patient was given N-Acetylcystine . Currently liver enzymes are within normal limits and Tylenol level is less than 10. Patient was seen by psychiatric and recommends inpatient psychiatric unit transfer. Continue with bedside sitter. Continue with antibiotics for 5 days. Can be changed to Augmentin upon discharge. Follow-up culture reports and further recommendations based on the clinical course. Time with Patient: Greater than 30
[2019-10-02] MEDS: SODIUM CHLORIDE 0.9% 1,000 ML IV SCH ×2 (02:26→18:13)
[2019-10-02 05:10] VITALS: RESP 16
[2019-10-02] MEDS: HEPARIN SODIUM,PORCINE 5,000 UNIT/ML 1 ML VIAL SQ SCH ×2 (09:38→13:57)
[2019-10-02 11:19] VITALS: BP 109/63; PULSE 110; TEMP 98.3
[2019-10-02] MEDS ORDERED: oxyCODONE-APAP 10-325MG 1 EACH TAB PO STA (16:40)
--- NOTE | 2019-10-02 22:14 | P.DS ---
Providers Date of admission: 09/30/19 02:14 Expected date of discharge: 10/02/19 Attending physician: Keshawn Ordonez Consults: 09/30/19 01:08 Consult Physician Routine Consulting Provider: Dinesh Lerma Consult Reason/Comments: overdose, intentional Do you want consulting provider notified?: Yes Primary care physician: [facility] Course: Presenting complaint: Overdose Hospital course: This patient presented to the ER for chief complaint of overdose. She did take an overdose of Xanax is concerned about her taking something else as well. Patient has been overwhelmed with her life. She had recently Andres diet. Also to testify in court for a matter involving a significant other and also was kicked out of her house. She had taken about 8-15 tablets of Xanax. Also about 10 tablets of Tylenol. She also apparently has been upset with her dad. Somewhat restrictive in terms of her going out. Patient has been in nursing school. Patient also felt to some aspiration pneumonitis. Today-feeling better. Did tolerate some diet. Seen by psychiatry except the patient to the psychiatry unit. Patient initially not keen to go to the psychiatry unit wanted to go back to her father's place and she has a plan. I spent a lot of time discussing the importance of going down to the psychiatry unit. She expressed understanding of the same. And willing to go down to the psychiatry unit. Patient has a sitter. Total time spent with discussion discharge planning more than 35 minutes Consultation: Dr. Lerma from psychiatry Physical examination: VITAL SIGNS: 98.3, 110, 16, 109/63, 98% on room air GENERAL: BMI 30.3, laying in bed,, comfortable. EYES: Pupils equal. Conjunctiva normal. HEENT: External appearance of nose and ears normal, oral cavity grossly normal. NECK: JVD not raised; masses not palpable. HEART: First and second heart sounds are normal; no edema. LUNGS: Respiratory rate normal; clear to auscultation. ABDOMEN: Soft, nontender, liver spleen not palpable, no masses palpable. PSYCH: [Alert and oriented x3; mood and affect a bit low, l. NEUROLOGICAL: Cranial nerves grossly intact; no facial asymmetry, power and sensation grossly intact. LYMPHATICS: No lymph nodes palpable in the axilla and neck INVESTIGATIONS, reviewed in the clinical context: White count 8.5 hemoglobin 10.9 progression 4 creatinine 0.56 Urine drug screen positive for opiates, oxycodone, tricyclic antidepressants, amphetamines, benzodiazepine. Acetaminophen level 15.7 repeat less than 10 Assessment: -Intentional overdose of Xanax and acetaminophen. No toxicity from the same. -Obesity BMI 30.3 -Possible major depressive disorder, anxiety and specified Plan: Disposition to inpatient psychiatry unit at [address] [place] [address]. Patient Condition at Discharge: Stable Plan - Discharge Summary Discharge Rx Participant: No New Discharge Prescriptions: New Amoxicillin/Potassium Clav [Augmentin 875-125 Tablet] 1 tab PO Q12HR 3 Days #6 tab Continue Melatonin 10 mg PO HS PRN PRN Reason: Insomnia Cyclobenzaprine [Flexeril] 10 mg PO TID PRN PRN Reason: Pain oxyCODONE HCL/ACETAMINOPHEN [Percocet 10-325 mg] 1 tab PO BID PRN PRN Reason: Pain No Action Acetaminophen Tab [Tylenol] 650 mg PO Q6HR PRN tab PRN Reason: Mild Pain Or Fever > 100.5 Dextroamphetamine/Amphetamine [Adderall] 20 mg PO BID ALPRAZolam [Xanax] 0.25 mg PO BID PRN PRN Reason: Anxiety Discharge Medication List Acetaminophen Tab [Tylenol] 650 mg PO Q6HR PRN tab 06/10/17 [Rx] ALPRAZolam [Xanax] 0.25 mg PO BID PRN 09/30/19 [History] Cyclobenzaprine [Flexeril] 10 mg PO TID PRN 09/30/19 [History] Dextroamphetamine/Amphetamine [Adderall] 20 mg PO BID 09/30/19 [History] Melatonin 10 mg PO HS PRN 09/30/19 [History] oxyCODONE HCL/ACETAMINOPHEN [Percocet 10-325 mg] 1 tab PO BID PRN 09/30/19 [History] Amoxicillin/Potassium Clav [Augmentin 875-125 Tablet] 1 tab PO Q12HR 3 Days #6 tab 10/02/19 [Rx] Follow up Appointment(s)/Referral(s): Guillaume Ramirez DO [Primary Care Provider] - As Needed Discharge Disposition: TRANSFER TO PSYCH HOSP/UNIT
--- NOTE | 2019-10-04 01:34 | CDI ---
Documentation Clarification Form Date: 10/04/2019 From: Finesse Hoff Phone: If you have a question about this query, please contact Pascale Flores, Clothing Sales Assistant at [phone] between 8am and 5pm. Admit Date: 09/30/2019 Discharge Date: 10/02/2019 Patient Name: Mary Siddiqi Visit Number: [id number] ATTENTION: The Clinical Documentation Specialists (CDI) and [facility] Coding Staff appreciate your assistance in clarifying documentation. Please respond to the clarification below the line at the bottom and electronically sign. The CDI & [facility] Coding staff will review the response and follow-up if needed. Please note: Queries are made part of the Legal Health Record. If you have any questions, please contact the author of this message via ITS. Dear Keshawn Almodovar., Coronavirus (PCR) testing was performed on this patient. All patients with Coronavirus testing require documentation of results/clinical significance. Patient history/risk factors: Overdose, Aspiration Pneumonia Clinical Indicators: Patient present with Overdose by Xanax and Acetaminophen In ED stated "Coronavirus (PCR) Not Detected (Not Detectd) " Treatment:Patient be continued on IV hydration and monitor LFTs and acetaminophen level.Patient was given N-Acetylcystine . Continue with antibiotics for 5 days.Can be changed to Augmentin upon discharge. In order to capture the severity of condition, please clarify if the above treatment/clinical indicators signify regarding lab result: COVID-19 ruled out COVID-19 false negative test result, treated for Covid-19 based on clinical indicators (please specify clinical indicators) Other, please specify Unable to determine MTDD
== END 2019-10-02 19:33 | DRG 917 ==
LOC: EC 20:56 → 3SCARD 09-30 02:14 → UNDOADMIN 09-30 02:14 → 5NMEDONC 10-01 18:01
PROVIDERS: ADMIT Hospitalist; ATTEND Hospitalist
DX: T42.4X2A Poisoning by benzodiazepines, intentional self-harm, initial encounter (principal); J69.0 Pneumonitis due to inhalation of food and vomit; J98.11 Atelectasis; T39.1X1A Poisoning by 4-Aminophenol derivatives, accidental (unintentional), initial encounter; Z68.30 Body mass index [BMI] 30.0-30.9, adult; E66.9 Obesity, unspecified; F32.9 Major depressive disorder, single episode, unspecified; F41.9 Anxiety disorder, unspecified; F90.9 Attention-deficit hyperactivity disorder, unspecified type; Z82.49 Family history of ischemic heart disease and other diseases of the circulatory system; Z87.891 Personal history of nicotine dependence; Z91.5 Personal history of self-harm; Z11.59 Encounter for screening for other viral diseases
CPT/HCPCS: 36415; 71045; 80053; 80306; 80320; 80329; 81001; 82803; 83520; 83735; 84703; 85025; 85610; 85730; 87040; 87635; 93005; 96361; 96365; 96366; 96368; 96375; 99285

== ENCOUNTER 2019-10-02 19:16 | Inpatient (IN) | payer BC ==
[2019-10-02] MEDS ORDERED: MAGNESIUM HYDROXIDE 2,400 MG/10 ML CUP PO PRN (19:54)
[2019-10-02] MEDS ORDERED: MAG HYDROX/AL HYDROX/SIMETH 30 ML CUP PO PRN (19:54)
[2019-10-02] MEDS ORDERED: LORazepam 1 MG TAB PO PRN (19:54)
[2019-10-02] MEDS: AMOXIC-POT CLAV 875-125MG 1 EACH TAB PO SCH (21:22)
[2019-10-03] MEDS: AMOXIC-POT CLAV 875-125MG 1 EACH TAB PO SCH ×2 (09:13→21:01)
[2019-10-03] MEDS ORDERED: hydrOXYzine PAMOATE 25 MG CAP PO PRN (10:11)
[2019-10-03] MEDS: SERTRALINE 50 MG TAB PO SCH (10:32)
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
--- NOTE | 2019-10-03 17:09 | P.CONS ---
History of Present Illness - Reason for Consult Consult date: 10/03/19 Medical management Requesting physician: Pavan Banda - Chief Complaint Suicidal ideation - History of Present Illness Consultation: This patient presented to the ER for chief complaint of overdose. She did take an overdose of Xanax is concerned about her taking something else as well. Patient has been overwhelmed with her life. She had recently had a friend who . Also to testify in court for a matter involving a significant other and also was kicked out of her house. She had taken about 8-15 tablets of Xanax. Also about 10 tablets of Tylenol. She also apparently has been upset with her dad. Somewhat restrictive in terms of her going out. Patient has been in nursing school. Patient also felt to some aspiration pneumonitis. Admitted to the hospital on September 28 and discharged on October 01 to the psychiatry unit. Patient was seen by psychiatry and excepted the patient to the 3 [address]. psychiatry unit. Patient feels somewhat better. Tolerating some diet. Less depressed. Did also have a group therapy. Sleeping a bit better. 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 Does not smoke. Alcohol occasionally. Socially Physical examination: VITAL SIGNS: 98.9, 80, 17, 122/67, 98% on room air GENERAL: BMI 29.3, laying in bed, appears more restful today EYES: Pupils equal. Conjunctiva normal. HEENT: External appearance of nose and ears normal, oral cavity grossly normal. NECK: JVD not raised; masses not palpable. HEART: First and second heart sounds are normal; no edema. LUNGS: Respiratory rate normal; clear to auscultation. ABDOMEN: Soft, nontender, liver spleen not palpable, no masses palpable. PSYCH: [Alert and oriented x3; mood and affect less anxious l. NEUROLOGICAL: Cranial nerves grossly intact; no facial asymmetry, power and sensation grossly intact. LYMPHATICS: No lymph nodes palpable in the axilla and neck INVESTIGATIONS, reviewed in the clinical context: Potassium 4 creatinine 0.56 white count 8.5 hemoglobin 10.9 TSH 0.788 Urine drug screen positive for opiates, oxycodone, tricyclic antidepressants, amphetamines, benzodiazepine. Acetaminophen level 15.7 repeat less than 10 Assessment: -Intentional overdose of Xanax and acetaminophen. No toxicity from the same. -Normocytic anemia-cause unknown for further workup as an outpatient. - major depressive disorder, without psychotic features -Anxiety disorder unspecified -Insomnia from underlying psychiatric disorder Plan: Care was discussed with the patient. Continue current medication treatment plan. Patient to follow-up with her family doctor for discharge. Patient's currently on Zoloft melatonin. Encouraged to ambulate and follow-up recommendations per the psychiatry Thank you Dr. Banda Past Medical History Past Medical History: No Reported History History of Any Multi-Drug Resistant Organisms: None Reported Past Surgical History: Ear Surgery Additional Past Surgical History / Comment(s): tubes in ears as child, rhinoplasty. Recent "full body lipo done". Past Anesthesia/Blood Transfusion Reactions: No Reported Reaction Smoking Status: Never smoker - Past Family History Mother Family Medical History: No Reported History Father Family Medical History: Hypertension Medications and Allergies Home Medications Medication Instructions Recorded Confirmed Type Acetaminophen Tab [Tylenol] 650 mg PO Q6HR PRN tab 06/10/17 10/02/19 Rx ALPRAZolam [Xanax] 0.25 mg PO BID PRN 09/30/19 10/02/19 History Cyclobenzaprine [Flexeril] 10 mg PO TID PRN 09/30/19 10/02/19 History Dextroamphetamine/Amphetamine 20 mg PO BID 09/30/19 10/02/19 History [Adderall] Melatonin 10 mg PO HS PRN 09/30/19 10/02/19 History oxyCODONE HCL/ACETAMINOPHEN 1 tab PO BID PRN 09/30/19 10/02/19 History [Percocet 10-325 mg] Amoxicillin/Potassium Clav 1 tab PO Q12HR 3 Days #6 tab 10/02/19 10/02/19 Rx [Augmentin 875-125 Tablet] Allergies Allergy/AdvReac Type Severity Reaction Status Date / Time No Known Allergies Allergy Verified 10/02/19 21:03 Physical Exam Vitals: Vital Signs Temp Pulse Resp BP Pulse Ox 10/03/19 05:45 98.9 F 80 17 122/67 98 10/02/19 21:24 98.6 F 10/02/19 19:48 97.0 F L 121 H 20 143/94 Intake and Output 10/02/19 10/03/19 10/03/19 22:59 06:59 14:59 Other: Weight 87.3 kg
[2019-10-03] MEDS ORDERED: MELATONIN 3 MG TABLET PO SCH (21:00)
[2019-10-04] MEDS: SERTRALINE 50 MG TAB PO SCH (08:22)
[2019-10-04] MEDS: AMOXIC-POT CLAV 875-125MG 1 EACH TAB PO SCH ×2 (08:22→20:57)
--- NOTE | 2019-10-04 09:33 | P.PN ---
Progress Note - Text Progress Note Date: 10/04/19 Interval History: Patient was seen [wandering the hallways] and was directable and agreeable to speak with typewriter repairer in the office. Patient appeared to be more cooperative today and endorsed no complaints overnight. She states that she slept well last night however claims that it is harder to sleep in the hospital than her regular bed. She states that she has been going to groups and claims that she did miss the goal setting group however will be completing the activity later on today. She states that she is eating well however has been picky with food so far. She states that she feels medications are helping her mood and her anxiety. Patient was agreeable to be increased to 100 mg of Zoloft for tomorrow. She states that she was previously stable on this dose in the past. She claims to fair energy. At this time patient denies any suicidal or homical ideations, intent or plan. Patient denies any auditory, visual hallucinations and denies any paranoia or delusions. Patient denies any side effects from the medications and has been compliant with meds. Mental Status Exam: General Appearance: Patient appears to be stated age is alert, directable, and attempts to be cooperative. Patient appears to have improved hygiene and grooming. Behavior: Patient is seated without any agitated behavior. Somewhat superficial Speech: Patient's speech is fluent and nonpressured. Soft tone. Mood/Affect: Patient reports their mood is gradually improving, affect is congruent and constricted. Suicidality/Homicidality: Patient denies having any homicidal ideation intent or plan. Denies any suicidal ideations intent or plan Perceptions: Patient denies any visual hallucinations and denies any auditory hallucinations Though content/process: There is no evidence of any delusional thought content and thought process is linear and goal-directed. Minimizing her symptoms. Memory and concentration: AOX3, grossly intact for the purposes of this session Judgment and insight: poor, and probably mildly. Assessment Major depressive disorder, without psychotic features Anxiety disorder unspecified Benzodiazepine abuse Opiate abuse Plan: -Patient continues to meet criteria for inpatient psychiatric admission for symptom stabilization and safety. Patient has signed adult voluntary form and medication consent and was placed in patient's chart. -Medications: Will increase Zoloft to 100 mg daily for mood/anxiety starting tomorrow. Increased melatonin 10 mg nightly for sleep. Vistaril necessary for anxiety. -When necessary Ativan for agitation/aggression. -NRT - not needed as patient does not smoke -SW on board for discharge planning. Encourage patient to participate in groups to work on coping skills. Will offer patient substance use treatment resources and offer patient would like to go to rehab. Likely discharge tomorrow.
[2019-10-04] MEDS ORDERED: MELATONIN 5 MG TABLET PO SCH (21:00)
[2019-10-05 06:56] VITALS: BP 115/56; PULSE 83; RESP 14; TEMP 98.2
[2019-10-05] MEDS ORDERED: SERTRALINE 100 MG TAB PO SCH (09:00)
[2019-10-05] MEDS: AMOXIC-POT CLAV 875-125MG 1 EACH TAB PO SCH (09:21)
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
== END 2019-10-05 12:01 | disposition home or self-care (01) | DRG 881 ==
LOC: 3MHU 19:34
PROVIDERS: ADMIT Psychiatry & Neurology Psychiatry; ATTEND Psychiatry & Neurology Psychiatry
DX: F32.9 Major depressive disorder, single episode, unspecified (principal); R45.851 Suicidal ideations; F41.9 Anxiety disorder, unspecified; F11.10 Opioid abuse, uncomplicated; F13.10 Sedative, hypnotic or anxiolytic abuse, uncomplicated; G47.00 Insomnia, unspecified; Z11.59 Encounter for screening for other viral diseases; Z56.0 Unemployment, unspecified; Z82.49 Family history of ischemic heart disease and other diseases of the circulatory system
CPT/HCPCS: 84443; 87635

== ENCOUNTER 2020-01-08 14:02 | Emergency (ER) | payer BC, OTHER ==
[2020-01-08 14:12] VITALS: RESP 18
[2020-01-08] MEDS ORDERED: HYDROcodone/APAP 5-325MG 1 EACH TAB PO STA (14:21)
[2020-01-08] MEDS ORDERED: KETOROLAC 30 MG/ML 1 ML VIAL IM STA (14:21)
--- NOTE | 2020-01-08 14:42 | ED ---
Extremity Problem HPI - General Chief complaint: Extremity Problem,Nontraumatic Stated complaint: Lump on R Arm Time Seen by Provider: 01/08/20 14:16 Source: patient Mode of arrival: ambulatory Limitations: no limitations - History of Present Illness Initial comments: 24-year-old female patient presents to the emergency department today for evaluation of pain and swelling to the right upper arm. Patient states that about a month ago she had a liposuction performed on the area. States that after the procedure there was a small lump but it has been getting larger over the last 4 weeks. States over the last few days the pain has been much worse. States that she is unable to move the arm without significant discomfort. Denies any radiating pain down to the hand. Denies numbness or tingling to the hand. She denies any fevers or chills with this. States that she has been unable to contact her surgeon. Denies taking anything for pain. Patient denies any recent rash, cough, shortness of breath, chest pain, abdominal pain, nausea, vomiting, diarrhea, constipation, back pain, numbness, tingling, dizziness, weakness, hematuria, dysuria, urinary urgency, urinary frequency, headache, visual changes, or any other complaints. - Related Data Previous Rx's Medication Instructions Recorded Amoxic-Pot Clav 875-125Mg 1 each PO Q12HR 1 Days #2 tab 10/05/19 [Augmentin 875-125] Melatonin 10 mg PO HS 30 Days tablet 10/05/19 Sertraline [Zoloft] 100 mg PO DAILY 30 Days tab 10/05/19 Cephalexin [Keflex] 500 mg PO Q6HR #40 cap 01/08/20 Ibuprofen [Motrin] 600 mg PO Q8HR PRN #30 tab 01/08/20 Allergies Allergy/AdvReac Type Severity Reaction Status Date / Time No Known Allergies Allergy Verified 01/08/20 14:11 Review of Systems ROS Statement: Those systems with pertinent positive or pertinent negative responses have been documented in the HPI. ROS Other: All systems not noted in ROS Statement are negative. Past Medical History Past Medical History: No Reported History Additional Past Medical History / Comment(s): TMJ History of Any Multi-Drug Resistant Organisms: None Reported Past Surgical History: Ear Surgery Additional Past Surgical History / Comment(s): tubes in ears as child, rhinoplasty. Recent "full body lipo done", jaw surgery Past Anesthesia/Blood Transfusion Reactions: No Reported Reaction Past Psychological History: ADD/ADHD, Anxiety Smoking Status: Never smoker Past Alcohol Use History: Occasional Past Drug Use History: None Reported - Past Family History Mother Family Medical History: No Reported History Father Family Medical History: Hypertension General Exam Limitations: no limitations General appearance: alert, in no apparent distress, other (This is a well- developed, well-nourished adult female patient in no acute distress. Vital signs upon presentation are temperature 97.7F, pulse 95, respirations 18, blood pressure 121/77, pulse ox 100% on room air.) Respiratory exam: Present: normal lung sounds bilaterally. Absent: respiratory distress, wheezes, rales, rhonchi, stridor Cardiovascular Exam: Present: regular rate, normal rhythm, normal heart sounds. Absent: systolic murmur, diastolic murmur, rubs, gallop, clicks Extremities exam: Present: full ROM, tenderness (Right medial upper arm), normal capillary refill, other (There is large area of swelling and induration to the right upper arm medially. There is no overlying erythema or warmth. Skin is otherwise pink, warm, dry. Cap refills less than 3 seconds. Radial pulses are 2+ and equal bilaterally.). Absent: normal inspection, pedal edema, joint swelling, calf tenderness Neurological exam: Present: alert, oriented X3, CN II-XII intact Psychiatric exam: Present: normal affect, normal mood Skin exam: Present: warm, dry, intact, normal color. Absent: rash Course Vital Signs 01/08/20 01/08/20 14:07 18:13 Temperature 97.7 F 98.7 F Pulse Rate 95 99 Respiratory 18 18 Rate Blood Pressure 121/77 136/97 O2 Sat by Pulse 100 99 Oximetry Medical Decision Making - Medical Decision Making 24-year-old female patient presented to the emergency department today for evaluation of swelling and pain to the right upper arm. Patient did have a liposuction procedure performed in August to the region. Physical examination did reveal soft tissue swelling, firmness, and erythema over the right upper arm. She is afebrile. Ultrasound was obtained and did show an area in the right upper arm consistent with phlegmon or cellulitis. Venous ultrasound was negative for DVT. I did discuss the findings with the patient's plastic surgeon [facility] who does not believe that the infection is related to the procedure. Patient was started on antibiotics and discharged to follow-up with Dr. Clark in the morning. She is instructed to follow-up with her primary care physician for recheck in 1-2 days. Return parameters were discussed in detail. Patient verbalizes understanding and agrees with this plan. - Radiology Data Radiology results: report reviewed Vascular ultrasound of the right upper extremity was obtained. Report was reviewed in its entirety. Impression by Dr. Viera shows area of phlegmon or focal cellulitis. Finding should be correlated with detailed from patient's surgery. No drainable abscesses noted. The area is palpable irregular in shape, hypoechoic measuring 5.3 x 0.7 x 3.4 cm. Ultrasound venous Doppler duplex of the right upper extremity was obtained. Report was reviewed in its entirety. Impression by Dr. Abdul shows no deep vein thrombosis in the right arm. There is thrombus in the cephalic vein which is a superficial vein. Disposition Clinical Impression: Right arm cellulitis, Superficial venous thrombosis of right arm Disposition: HOME SELF-CARE Condition: Good Instructions (If sedation given, give patient instructions): Cellulitis (ED) Additional Instructions: Apply warm compresses to the arm. Complete antibiotic prescription and full. Follow-up with your surgeon tomorrow morning. Follow up with her primary care physician for recheck in 1-2 days. Return to the emergency department immediately for any new, worsening, or concerning symptoms. Prescriptions: Cephalexin [Keflex] 500 mg PO Q6HR #40 cap Ibuprofen [Motrin] 600 mg PO Q8HR PRN #30 tab PRN Reason: Pain Is patient prescribed a controlled substance at d/c from ED?: No Referrals: Guillaume Ramirez DO [Primary Care Provider] - 1-2 days Time of Disposition: 17:06
--- NOTE | 2020-01-08 15:07 | US ---
EXAMINATION TYPE: US extremity nonvasc mass RT DATE OF EXAM: 01/08/2020 COMPARISON: NONE CLINICAL HISTORY: Localized pain/swelling right arm. Patient had liposuction in August. Currently she has painful mass right lateral arm. No redness. At area of palpable is an irregular shaped hypoechoic area measuring 5.3 x 0.7 x 3.4cm Area of concern localized to the deep subcutaneous tissue just superficial to the deeper arm muscles. Some internal vascularity is present. No well formed thick walled drainable abscess noted. IMPRESSION: As above. Differential includes phlegmon or focal cellulitis. Findings should be correla jamal with detailed from patient's surgery. No drainable abscess noted.
--- NOTE | 2020-01-08 16:49 | US ---
EXAMINATION TYPE: US venous doppler duplex UE RT DATE OF EXAM: 01/08/2020 COMPARISON: NONE CLINICAL HISTORY: Right arm pain/swelling. Pain in right arm, h/o liposuction within right arm in Aug, no h/o dvt SIDE PERFORMED: Right Right Arm: Negative for DVTinternal echoes within non compressible cephalic vein extending from for earm through upper arm IMPRESSION: There is no deep vein thrombosis in the right arm. There is some thrombus in the cephalic vein which is a superficial vein.
[2020-01-08] MEDS ORDERED: CEPHALEXIN 500MG STARTER PACK 4 CAP BTL PO STA (17:05)
[2020-01-08] MEDS ORDERED: ACET/COD 300 MG/30 MG STARTER PACK 6 TAB BTL PO STA (17:06)
[2020-01-08 18:14] VITALS: BP 136/97; PULSE 99; TEMP 98.7
== END 2020-01-08 18:14 | disposition home or self-care (01) ==
LOC: EC 14:02
DX: I82.611 Acute embolism and thrombosis of superficial veins of right upper extremity (principal); L03.113 Cellulitis of right upper limb
CPT/HCPCS: 93971; 76882; 99283; 96372; J1885

== ENCOUNTER 2020-08-29 22:14 | Emergency (ER) | payer OTHER, BC ==
[2020-08-29 22:30] VITALS: BP 156/107; PULSE 128; RESP 18; TEMP 97.8
== END 2020-08-30 00:09 | disposition left against medical advice (07) ==
LOC: EC 22:14
DX: T50.991A Poisoning by other drugs, medicaments and biological substances, accidental (unintentional), initial encounter (principal)
CPT/HCPCS: 93005; 99283